=== PATIENT | female | born 1990 | race Hispanic/Latino ===

== ENCOUNTER 2016-11-18 18:19 | Outpatient (CLI) | payer OTHER | END 2016-11-18 18:20 | disposition home or self-care (01) | LOC: LABHHL 18:19 | PROVIDERS: ATTEND Internal Medicine Gastroenterology | DX: N20.0 Calculus of kidney (principal); K58.9 Irritable bowel syndrome, unspecified; K59.00 Constipation, unspecified; K82.8 Other specified diseases of gallbladder; R93.5 Abnormal findings on diagnostic imaging of other abdominal regions, including retroperitoneum | CPT/HCPCS: 88305 ==

== ENCOUNTER 2017-01-02 06:07 | Day surgery (SDC) | payer OTHER ==
[~2017-01-02 06:07] MED LIST: ceFAZolin 2 GM in NACL 0.9% 100 ML IV ONE
[2017-01-02] MEDS ORDERED: NACL BACTERIOSTATIC INFILTRATI ONE (06:26)
[2017-01-02] MEDS ORDERED: ANCEF/STERILE WATER 2 GM/20 ML IV NR (07:00)
--- NOTE | 2017-01-02 07:09 | Anesthesia Consultation ---
Anesthesia Consult and Med Hx Date of service: 01/02/17 - Airway Anesthetic Teeth Evaluation: Good ROM Head & Neck: Adequate Mental/Hyoid Distance: Adequate Mallampati Class: Class I Intubation Access Assessment: Probably Good - Pulmonary Exam CTA: Yes - Cardiac Exam Cardiac Exam: RRR - Pre-Operative Health Status ASA Pre-Surgery Classification: ASA2 Proposed Anesthetic Plan: General - Pulmonary Hx Smoking: No (said she somked year ago, not current smoker) Hx Asthma: Yes (inhaler this am 01/02. ) Hx Sleep Apnea: No - Other Systems Hx Cancer: No - Additional Comments Anesthesia Medical History Comments: history of kidney stones
[2017-01-02] MEDS ORDERED: PEPCID IV NR (07:10)
--- NOTE | 2017-01-02 07:10 | Anesthesia Day of Surgery ---
Anesthesia Day of Surgery - Day of Surgery Patient Examined: Yes Patient H&P Reviewed: Yes Patient is NPO: Yes
[2017-01-02] MEDS ORDERED: SUBLIMAZE ONE (07:11)
[2017-01-02] MEDS ORDERED: DIPRIVAN 10 MG/ML IV ONE (07:11)
[2017-01-02] MEDS ORDERED: XYLOCAINE MPF 2% ONE (07:12)
[2017-01-02] MEDS ORDERED: ZEMURON IV ONE (07:12)
[2017-01-02] MEDS ORDERED: NORCO 5/325 PO PRN (07:14)
[2017-01-02] MEDS ORDERED: ZOFRAN IV PRN (07:14)
[2017-01-02] MEDS ORDERED: MARCAINE-EPI 0.25%-1:200,000 INFILTRATI ONE ×2 (07:27→08:35)
[2017-01-02] MEDS ORDERED: VERSED IV NR (08:00)
[2017-01-02] MEDS ORDERED: LACTATED RINGERS 1,000 ML IV SCH (08:00)
[2017-01-02] MEDS ORDERED: TORADOL ONE (08:28)
[2017-01-02] MEDS ORDERED: NEOSTIGMINE ONE (08:28)
[2017-01-02] MEDS ORDERED: ROBINUL ONE (08:28)
[2017-01-02] MEDS ORDERED: ZOFRAN ONE (08:35)
[2017-01-02] MEDS ORDERED: NACL 0.9% IR ONE (08:36)
--- NOTE | 2017-01-02 09:00 | Operative Report ---
Operative Report Operative Report: Date of procedure: 01/02/2017 Pre-operative diagnosis: Biliary dyskinesia Post-operative diagnosis: Same Procedure name(s): Laparoscopic cholecystectomy Surgeon: Anyi Luna MD Social Media Developer: Waldo Gómez M.D. Anesthesia: General EBL: Minimal Complications: None Instrument Count: correct Indications: This is a 27-year-old female with a history of right upper quadrant pain. Her workup was consistent with a biliary etiology. She was offered the above-named procedures a possible treatment modality. The risks and benefits of discussed until all questions were answered. She was subsequently brought to the OR. Findings: None significant Procedure: We reviewed the informed consent. We placed the patient supine upon the table. After adequate anesthesia was reached, the patient was prepped and draped in usual sterile fashion. A 5 mm incision was made the level of umbilicus and a Veress needle was placed at this position. The abdomen was then insufflated to 15 mmHg and a 5 mm trocar was placed through the umbilical incision. We inserted the camera at this time. Under direct vision and after infiltration of local anesthetic an 11 mm port was placed in the epigastric location. This was followed by placement of two five mm ports in the right upper quadrant. We identified the gallbladder and the fundus was grasped. This was retracted superiorly. We then grasped the infundibulum and retracted it laterally. At this time we dissected free the cystic duct infundibular junction until the triangle of Calot was clearly identified. We placed 3 clips proximally on the cystic duct, 2 distally. We placed 2 clips proximally on the cystic artery. We transected the cystic duct sharply. We transected the cystic artery using electrocautery. We then dissected the gallbladder free from its fossa using electrocautery. This was placed in Endo Catch bag and removed the abdomen to be sent to pathology for further evaluation. We assured hemostasis at this time. We then evacuated the insufflation. We removed all ports and closed all port sites using a 4-0 Monocryl in a subcuticular fashion. The wounds were bandaged sterilely. The patient tolerated procedure well. They were taken to PACU in no apparent distress after extubation.
--- NOTE | 2017-01-02 09:05 | Short Stay Summary ---
Short Stay Documentation Date of service: 01/02/17 - History H&P: obtained from office - Allergies and Medications Current Medications: Allergies duloxetine HCl [From Cymbalta] Allergy (Verified 12/30/16 10:22) Rash Home Medications Medication Instructions Recorded Confirmed Last Taken Type Budesoni/Formotero 160-4.5(Nf) 2 puff IH QDAY 12/30/16 12/30/16 01/02/17 05:00 History [Symbicort 160-4.5 (Nf)] Dextroamphetamine/Amphetamine 30 mg PO QDAY 12/30/16 12/30/16 01/01/17 History [Adderall XR 30 mg] LORazepam [Ativan] 0.5 mg PO Q6H PRN 12/30/16 12/30/16 01/01/17 History [place] Carbonate 300 mg PO QAM 12/30/16 12/30/16 01/02/17 05:00 History [place] Carbonate 600 mg PO QHS 12/30/16 12/30/16 01/01/17 History Norethindrone-E.estradiol-Iron 1 each PO QDAY 12/30/16 12/30/16 01/01/17 History [Monica Fe 1-20 Tablet] risperiDONE [RisperDAL] 2 mg PO QHS 12/30/16 12/30/16 01/01/17 History Active Medications Acetaminophen/Hydrocodone Bitart ([place] 5/325) 2 each PO ONCE PRN PRN Reason: Pain, Moderate (4-6) Stop: 01/02/17 16:00 Cefazolin Sodium (Ancef/Sterile Water 2 Gm/20 Ml) 2 gm IV PREOP NR Stop: 01/02/17 23:59 Famotidine (Pepcid) 20 mg IV ONCE NR Stop: 01/02/17 23:59 Last Admin: 01/02/17 07:25 Dose: 20 mg Hydromorphone HCl (Dilaudid) 0.5 mg IV Q10MIN PRN PRN Reason: Pain , Severe (7-10) Stop: 01/02/17 16:00 Lactated Ringer's (Lactated Ringers) 1,000 mls @ 125 mls/hr IV DIRECT ANTONIO Last Admin: 01/02/17 07:05 Dose: 125 mls/hr Midazolam HCl (Versed) 2 mg IV PREOP NR Stop: 01/02/17 23:59 Last Admin: 01/02/17 07:23 Dose: 2 mg Ondansetron HCl (Zofran) 4 mg IV ONCE PRN PRN Reason: Nausea And Vomiting Stop: 01/02/17 16:00 - Brief post op/procedure progress note Date of procedure: 01/02/17 Pre-op diagnosis: biliary dyskinesia Post-op diagnosis: same Procedure: Laparoscopic cholecystectomy Anesthesia: GETA Surgeon: MORALES WILL Cancer Registry Manager: SHANIQUA CASTRO Estimated blood loss: minimal Pathology: list (gallbladder) Specimen disposition: to lab Condition: stable - Disposition Condition at discharge: Stable Disposition: DISCHARGED TO HOME OR SELFCARE Short Stay Discharge Plan Activity: no restrictions, advance as tolerated Diet: low fat Wound: keep clean and dry Follow up with: CHARMAINE BOOTHE MD [Primary Care Provider] - 7 Days MORALES WILL MD [Staff Physician] - 7 Days Prescriptions: oxyCODONE /ACETAMINOPHEN [Percocet 5/325] 1 tab PO Q6HR PRN #30 tablet PRN Reason: Pain
[2017-01-02] MEDS: DILAUDID IV PRN ×2 (09:28→09:38)
--- NOTE | 2017-01-02 09:45 | Post Anesthesia Evaluation ---
- Post Anesthesia Evaluation Patient Participated: Yes Airway Patent: Yes Stable Respiratory Function: Yes Temp > 96.8F: Yes Pain Manageable: Yes Adequeate Hydration: Yes Anesthesia Complications: No Block Receding Appropriately: Not Applicable
[2017-01-02 10:03] VITALS: BP 105/64
== END 2017-01-02 10:35 | disposition home or self-care (01) ==
LOC: OR 06:07
PROVIDERS: ATTEND Surgery
DX: K82.8 Other specified diseases of gallbladder (principal); F41.9 Anxiety disorder, unspecified; J45.909 Unspecified asthma, uncomplicated; F31.9 Bipolar disorder, unspecified; Z98.890 Other specified postprocedural states; Z79.899 Other long term (current) drug therapy
CPT/HCPCS: 47562; 88304; J0690; J1170; J1885; J2250; J2405; J2704; J2710; J3010; J7120; 81025